=== PATIENT | male | born 1945 | race Caucasian/White ===

== ENCOUNTER 2024-01-06 11:48 | Emergency (ER) | payer MEDICARE ==
[2024-01-06 12:14] VITALS: O2SAT 98
[2024-01-06 12:15] LABS: BASOPHILS % (AUTO) 0.7 %; EOSINOPHILS # (AUTO) 0.1 10^3/uL (0.0-0.7); HCT - HEMATOCRIT 43.8 % (42.0-52.0); LYMPHOCYTES # (AUTO) 1.8 10^3/uL (1.5-3.5); LYMPHOCYTES % (AUTO) 29.1 %; MEAN CORPUSCULAR HEMOGLOBIN 30.7 pg (27.0-31.0); MEAN CORPUSCULAR VOLUME 96.1 fL (80.0-94.0); MEAN PLATELET VOLUME 10.8 fL (7.4-11.4); MONOCYTES # (AUTO) 0.8 10^3/uL (0.0-1.0); MONOCYTES % (AUTO) 12.9 %; NEUTROPHILS # (AUTO) 3.4 10^3/uL (1.5-6.6); PLT - PLATELET COUNT 181 10^3/uL (130-450); RED BLOOD COUNT 4.56 10^6/uL (4.70-6.10); RED CELL DISTRIBUTION WIDTH 13.4 % (12.0-15.0); WHITE BLOOD COUNT 6.1 x10^3/uL (4.8-10.8)
--- NOTE | 2024-01-06 12:28 | ED Physician Documentation ---
PD HPI ALTERED MENTAL STATUS - Stated complaint Stated Complaint: CONFUSION - Chief complaint Chief Complaint: Neuro - Additional information Additional information: 78-year-old male with no pertinent past medical history presents emergency d epartment for 1 episode of confusion that has now fully resolved. Patient is here with his she says that he was working on a drain with his son-in-law and te son-in-law went and got his because the son-in-law was worried about new confusion. According to the son-in-law the patient was saying things that did not make sense and the patient had forgotten what he was doing and had forgotten that he had already completed the task and was trying to completed again. When the went and checked on the patient she also noticed that he was confused he did not know what day it was he did not know what time it was or where he was located. Since coming to the emergency department these symptoms have now fully resolved patient's says that she did not notice any slurred speech no weakness on one side of the body and patient denies any weakness currently on any side of the body. This is never happened before patient's does report that they are here visiting from [place] and it has been a stressful trip. PD PAST MEDICAL HISTORY - Past Medical History Past Medical History: Yes Cardiovascular: High cholesterol - Past Surgical History Past Surgical History: Yes Ortho: Hip replacement, Carpal Tunnel surgery - Present Medications Home Medications: Ambulatory Orders Medication Instructions Recorded Confirmed Rosuvastatin Calcium [Crestor] 20 mg PO DAILY 01/06/24 01/06/24 - Allergies Allergies/Adverse Reactions: Allergies Allergy/AdvReac Type Severity Reaction Status Date / Time No Known Drug Allergies Allergy Verified 01/06/24 12:09 - Social History Does the pt smoke?: No Smoking Status: Never smoker Does the pt drink ETOH?: Yes Does the pt have substance abuse?: No - Immunizations Immunizations are current?: Yes - POLST Patient has POLST: No PD ED PE NORMAL - Vitals Vital signs reviewed: Yes - General General: Alert and oriented X 3, No acute distress, Well developed/nourished - HEENT HEENT: Atraumatic, PERRL - Neck Neck: Supple, no meningeal sign - Cardiac Cardiac: RRR, No gallop - Respiratory Respiratory: No respiratory distress, Clear bilaterally - Derm Derm: Normal color, Warm and dry - Psych Psych: Normal mood, Normal affect PD ED PE EXPANDED - Neuro Neuro: Alert and Oriented X 3, Normal motor, Normal Sensation, Normal Speech, Normal reflexes, CNII-XII intact, PERRL, Normal gait, Normal finger nose, Normal speech. No: Confused, Disoriented, Lethargic, Obtunded, Weakness, Abnormal sensation, CN deficit, Nystagmus, Aphasia Results - Vitals Vitals: Vital Signs - 24 hr 01/06/24 01/06/24 12:01 14:25 Temperature 36.1 C L Heart Rate 77 63 Respiratory 17 17 Rate Blood Pressure 153/82 H 134/76 H O2 Saturation 98 98 Oxygen O2 Source Room air - Labs Labs: Laboratory Tests 01/06/24 01/06/24 01/06/24 12:07 12:08 12:08 WBC 6.1 RBC 4.56 L Hgb 14.0 Hct 43.8 MCV 96.1 H MCH 30.7 MCHC 32.0 RDW 13.4 Plt Count 181 MPV 10.8 Neut # (Auto) 3.4 Lymph # (Auto) 1.8 Rankin # (Auto) 0.8 Eos # (Auto) 0.1 Baso # (Auto) 0.0 Absolute Nucleated RBC 0.00 Nucleated RBC % 0.0 Sodium 133 L Potassium 4.0 Chloride 98 L Carbon Dioxide 28 Anion Gap 7.0 BUN 22 H Creatinine 1.0 Estimated GFR (MDRD) 72 L Glucose 104 POC Whole Bld Glucose 115 H Lactic Acid Calcium 9.6 Magnesium 2.1 Total Bilirubin 1.5 H AST 35 ALT 27 Alkaline Phosphatase 72 Total Protein 6.9 Albumin 4.6 Globulin 2.3 Albumin/Globulin Ratio 2.0 Lipase 28 01/06/24 12:08 WBC RBC Hgb Hct MCV MCH MCHC RDW Plt Count MPV Neut # (Auto) Lymph # (Auto) Rankin # (Auto) Eos # (Auto) Baso # (Auto) Absolute Nucleated RBC Nucleated RBC % Sodium Potassium Chloride Carbon Dioxide Anion Gap BUN Creatinine Estimated GFR (MDRD) Glucose POC Whole Bld Glucose Lactic Acid 1.1 Calcium Magnesium Total Bilirubin AST ALT Alkaline Phosphatase Total Protein Albumin Globulin Albumin/Globulin Ratio Lipase - Rads (name of study) Head CT without Relevant Findings:: Final report received, EMP independent interpretation of test, Other (No acute intracranial abnormalities or processes. Mild atrophy and chronic microvascular ischemic changes) PD Medical Decision Making - ED course ED course: 78-year-old male presents emergency department for brief episode of confusion that has now fully resolved. Differentials include but are not limited to infection, TIA, stroke, electrolyte abnormality. Labs were complete no leukocytosis no anemia no electrolyte abnormalities. Bilirubin slightly elevated at 1.5 BUN very slightly elevated at 22 GFR normal at 1.0. Head CT without contrast was also complete and did not reveal any acute intracranial abnormalities or findings. There does appear to be mild atrophy and chronic microvascular ischemic changes. Throughout patient's ER visit he had no repeat episodes of confusion. At this point in time I do not believe that he meets any further requirement for workup or hospitalization. He is told to follow-up with his primary care provider when he returns home he is here visiting from [place]. He does said that he recently had an appoint with his primary care provider and said that he had a clean bill of health with normal labs. He is already on cholesterol medication, Crestor. He was given very strict ER return precautions as well as his at this point in time I am uncertain what caused his episode of confusion could be related to TIA or some other unknown cause but patient was told if this happens again to present back to the emergency department. Given that he has absolutely no neurological symptoms and has had no neurological symptoms since he has been here he does not meet requirements for hospitalization he has a normal lactic I did consider infection we did not test his urine although I did consider this as well he has no urological symptoms no dysuria no CVA tenderness no recent fevers or chills no urinary frequency or urgency. Departure - Departure Disposition: 01 Home, Self Care Clinical Impression: Transient confusion Condition: Stable Instructions: ED Confusion, ED Transient Ischemic Attack Comments: Thank you for trusting us with your care. We have completed labs as well as a head CT and we are not finding any acute abnormalities at this point in time. Your bilirubin as we discussed was very slightly elevated this can also be related to or due to just simply being dehydrated. I would have your labs reevaluated by your primary care provider and return home and follow-up with your primary care provider to let her know about today's ER visit. If this happens again or if you are starting to notice any worsening or other neurological symptoms please report back to the emergency department immediately for further evaluation. Head CT COMPARISON: None. FINDINGS: Image quality: Excellent. The ventricular system and cortical sulci demonstrate atrophy, consistent for patient's stated age. There are areas of hypodensity in the periventricular and subcortical white matter. There is no acute intra or extra-axial fluid collection. No acute hemorrhage, mass lesion or midline shift. Brainstem is unremarkable. Globes are symmetrical. Sinuses are aerated. Osseous structures are intact. IMPRESSION: 1. No acute intracranial process. 2. Mild atrophy and chronic microvascular ischemic changes. Forms: PCP List Discharge Date/Time: 01/06/24 14:34
[2024-01-06 12:30] LABS: ALBUMIN 4.6 g/dL (3.2-5.5); BILIRUBIN,TOTAL 1.5 mg/dL (0.2-1.0); CALCIUM 9.6 mg/dL (8.5-10.3); MAGNESIUM 2.1 mg/dL (1.7-2.3); TOTAL PROTEIN 6.9 g/dL (6.4-8.9)
--- NOTE | 2024-01-06 13:14 | CT Report ---
PROCEDURE: Head WO INDICATIONS: confusion TECHNIQUE: Noncontrast 4.5 mm thick angled axial sections acquired from the foramen magnum to the vertex. For r adiation dose reduction, the following was used: automated exposure control, adjustment of mA and/or kV according to patient size. COMPARISON: None. FINDINGS: Image quality: Excellent. The ventricular system and cortical sulci demonstrate atrophy, consistent for patient's stated age. There are areas of hypodensity in the periventricular and subcortical white matter. There is no acut e intra or extra-axial fluid collection. No acute hemorrhage, mass lesion or midline shift. Brainst em is unremarkable. Globes are symmetrical. Sinuses are aerated. Osseous structures are intact. IMPRESSION: 1. No acute intracranial process. 2. Mild atrophy and chronic microvascular ischemic changes. Reviewed by: Nanda Delcid MD on 01/06/2024 1:13 PM PDT Approved by: Nanda Delcid MD on 01/06/2024 1:13 PM PDT Station ID: [id number]
[2024-01-06 14:35] VITALS: BP 134/76
== END 2024-01-06 14:34 | disposition home or self-care (01) ==
LOC: ED 11:48
DX: R41.0 Disorientation, unspecified (principal)
CPT/HCPCS: 36415; 80053; 83605; 83690; 83735; 85025; 93005; 99283; 99284